=== PATIENT | female | born 1985 | race Caucasian/White ===

== ENCOUNTER 2017-12-28 16:56 | Emergency (ER) | payer SELFPAY ==
[2017-12-28 17:03] VITALS: BP 123/72; PULSE 65; TEMP 98.2; BMI 28.0
[2017-12-28] MEDS ORDERED: IBUPROFEN 400 MG TABLET (FP) PO ONE ×2 (17:25→17:29)
--- NOTE | 2017-12-28 17:25 | PDOC ---
History of Present Illness - General Chief Complaint: Injury Stated Complaint: FOOT INJURY Time Seen by Provider: 12/28/17 17:12 History Source: Patient Exam Limitations: Clinical Condition - History of Present Illness Initial Comments: 12/28/17 17:20 Patient with no sig Past medical history present with complain of pain and swelling to left foot on the lateral side status post injury while playing soccer 2 hours ago. Patient reported moderate swelling and pain to the side of the foot worsen with ambulation. Denies any other symptoms Timing/Duration: 1-3 hours Past History - Past Medical History Allergies/Adverse Reactions: Allergies Allergy/AdvReac Type Severity Reaction Status Date / Time No Known Allergies Allergy Verified 12/28/17 17:00 Home Medications: Ambulatory Orders Ibuprofen 800 mg PO Q8H PRN #20 tablet 12/28/17 COPD: No - Surgical History Appendectomy: Yes - Suicide/Smoking/Psychosocial Hx Smoking History: Never smoked Information on smoking cessation initiated: No Hx Alcohol Use: No Drug/Substance Use Hx: No Substance Use Type: None Review of Systems - Review of Systems Able to Perform ROS?: Yes Is the patient limited Armenian proficient: No Constitutional: No: Chills, Diaphoresis, Fever, Loss of Appetite, Malaise, Night Sweats, Weakness, Weight Stable, Unintentional Wgt. Loss, Unexplained wgt Loss, Other HEENTM: No: Eye Pain, Blurred Vision, Tearing, Recent change in vision, Double Vision, Cataracts, Ear Pain, Ocular Prothesis, Ear Discharge, Nose Pain, Nose Congestion, Tinnitus, Nose Bleeding, Hearing Loss, Throat Pain, Throat Swelling , Mouth Pain, Dental Problems, Difficulty Swallowing, Mouth Swelling, Other Respiratory: No: Cough, Orthopnea, Shortness of Breath, SOB with Exertion, SOB at Rest, Stridor, Wheezing, Productive cough, Hemoptysis, Other Cardiac (ROS): No: Chest Pain, Edema, Irregular Heart Rate, Lightheadedness, Palpitations, Syncope, Chest Tightness, Other ABD/GI: No: Abdominal Distended, Abd. Pain w/ defecation, Blood Streaked Bowels , Constipated, Diarrhea, Difficulty Swallowing, Nausea, Poor Appetite, Poor Fluid Intake, Rectal Bleeding, Vomiting, Indigestion, Abdominal cramping, Tarry Stools, Other Musculoskeletal: Yes: See HPI, Joint Swelling (left foot), Muscle Pain (left foot lateral side) Integumentary: Yes: Other (swelling to lateral side of left foot) All Other Systems: Reviewed and Negative *Physical Exam - Vital Signs Last Vital Signs Temp Pulse Resp BP Pulse Ox 98.2 F 65 18 123/72 100 12/28/17 17:00 12/28/17 17:00 12/28/17 17:00 12/28/17 17:00 12/28/17 17:00 - Physical Exam Comments: 12/28/17 17:22 GENERAL: Well developed, well nourished. Awake and alert. No acute distress. HEENT: Normocephalic, atraumatic. PERRLA, EOMI. No conjunctival pallor. Sclera are non- icteric. Moist mucous membranes. Oropharynx is clear. NECK: Supple. Full ROM. No JVD. Carotid pulses 2+ and symmetric, without bruits. No thyromegaly. No lymphadenopathy. CARDIOVASCULAR: Regular rate and rhythm. No murmurs, rubs, or gallops. Distal pulses are 2+ and symmetric. PULMONARY: No evidence of respiratory distress. Lungs clear to auscultation bilaterally. No wheezing, rales or rhonchi. ABDOMINAL: Soft. Non-tender. Non-distended. No rebound or guarding. No organomegaly. Normoactive bowel sounds. MUSCULOSKELETAL : Moderate swelling to lateral side of left foot and dorsum of right foot. Moderate tenderness to lateral side of left foot and dorsum of left foot over third to fifth metatarsals. No tenderness to ankle. Normal range of motion at all joints. No visible bony deformities EXTREMITIES: No cyanosis. No clubbing. No calf tenderness. SKIN: Warm and dry. Normal capillary refill. No rashes. No jaundice. NEUROLOGICAL: Alert, awake, appropriate. Cranial nerves 2-12 intact. No deficits to light touch and temperature in face, upper extremities and lower extremities. No motor deficits in the in face, upper extremities and lower extremities. Normoreflexic in the upper and lower extremities. Normal speech. Toes are down- going bilaterally. Gait is normal without ataxia. PSYCHIATRIC: Cooperative. Good eye contact. Appropriate mood and affect. General Appearance: Yes: Nourished, Appropriately Dressed, Mild Distress ED Treatment Course - RADIOLOGY Radiology Studies Ordered: Category Date Time Status ANKLE & FOOT-LEFT* [RAD] Stat Radiology 12/28/17 17:15 Ordered Medical Decision Making - Medical Decision Making 12/28/17 17:24 Patient with no sig Past medical history presenting with complain of pain and swelling to lateral side of left foot status post sports injury while playing soccer 2 hours ago. Exam shows moderate swelling and tenderness to dorsum when lateral side of left foot. X-ray of left ankle and foot ordered to rule out acute fracture pathology. Motrin 800 mg by mouth for pain. 12/28/17 18:53 Official radiology reading of x-ray of left foot and ankle shows no acute fracture. Patient will be treated for for sprain with NSAIDs and Javed wrap with orthopedist follow-up. Patient advised to keep weight off foot for the next few days and provided crutches to help relieve weight off the foot *DC/Admit/Observation/Transfer Diagnosis at time of Disposition: Foot pain, left Sprain of foot, left Qualifiers: Encounter type: initial encounter Qualified Code(s): S93.602A - Unspecified sprain of left foot, initial encounter - Discharge Dispostion Disposition: HOME Condition at time of disposition: Stable Decision to Admit order: No - Prescriptions Prescriptions: Ibuprofen 800 mg PO Q8H PRN #20 tablet PRN Reason: foot pain - Referrals Referrals: Tomy Landaverde MD [Staff Physician] - - Patient Instructions Printed Discharge Instructions: DI for Foot Fracture, DI for Foot Pain Additional Instructions: take prescribed medication as needed for pain. Keep left foot elevated and apply ice to foot. change to heat compress to foot after tomorrow. follow-up with referred orthopedics - Post Discharge Activity
== END 2017-12-28 18:59 | disposition home or self-care (01) ==
LOC: JERFT 16:56
DX: S93.602A Unspecified sprain of left foot, initial encounter (principal); X50.0XXA Overexertion from strenuous movement or load, initial encounter; Y93.66 Activity, soccer; Y92.322 Soccer field as the place of occurrence of the external cause; Y99.8 Other external cause status
CPT/HCPCS: 73610-TC-LT-FY; 73630-TC-LT; 99282-25

== ENCOUNTER 2019-01-03 21:37 | Emergency (ER) | payer SELFPAY | END 2019-01-04 02:22 | disposition home or self-care (01) | LOC: JER 01-04 02:22 | PROC: 3E0337Z Introduction of Electrolytic and Water Balance Substance into Peripheral Vein, Percutaneous Approach (ICD-10-PCS; principal; 2019-01-03) | DX: R07.89 Other chest pain (principal) ==

== ENCOUNTER 2019-05-18 11:32 | Emergency (ER) | payer OTHER ==
[2019-05-18 12:04] VITALS: BP 126/70; PULSE 61; TEMP 98.2; BMI 23.7
--- NOTE | 2019-05-18 13:24 | PDOC ---
History of Present Illness - General Chief Complaint: Cold Symptoms Stated Complaint: FEVER Time Seen by Provider: 05/18/19 12:55 - History of Present Illness Initial Comments: CHIEF COMPLAINT: cough, fever, body aches HISTORY OF PRESENT ILLNESS: 33 yo F with no PMH presents to ED with cough, body aches, and chills since yesterday morning. Patient states she has taken Tylenol with relief. Patient reports chest pain when coughing but otherwise no chest pain. No recent travel or sick contacts. PAST MEDICAL HISTORY: Denies past medical history FAMILY HISTORY: Denies SOCIAL HISTORY: Denies tobacco, alcohol, illicit drug use. SURGICAL HISTORY: Denies ALLERGIES: No known drug allergies REVIEW OF SYSTEMS General/Constitutional: Subjective fever, chills . Denies weakness, weight change. HEENT: Denies change in vision. Denies ear pain or discharge. Denies sore throat. Cardiovascular: Denies chest pain or shortness of breath. Respiratory: Cough. Denies wheezing, or hemoptysis. Gastrointestinal: Denies nausea, vomiting, diarrhea or constipation. Denies rectal bleeding. Genitourinary: Denies dysuria, frequency, or change in urination. Musculoskeletal: Generalized body aches. Denies joint or muscle swelling or pain. Denies neck or back pain. Skin and breasts: Denies rash or easy bruising. Neurologic: Denies headache, vertigo, loss of consciousness, or loss of sensation. Psychiatric: Denies depression or anxiety. PHYSICAL EXAM General Appearance: Well-appearing, appropriately dressed. No apparent distress. HEENT: EOMI, PERRLA, normal ENT inspection, normal voice, TMs normal, pharynx normal. No conjunctival pallor. No photophobia, scleral icterus. Neck: Supple. Trachea midline. No tenderness, rigidity, carotid bruit, stridor , lymphadenopathy, or thyromegaly. Respiratory/Chest: Intermittent expiratory wheezing to ACE. No shortness of breath, chest tenderness, respiratory distress, accessory muscle use. No crackles, rales, rhonchi, stridor, dullness Cardiovascular: RRR. S1, S2. No JVD, murmur, bradycardia, tachycardia. Vascular Pulses: Dorsalis-Pedis (R): 2+, Dorsalis-Pedis (L): 2+ Gastrointestinal/Abdominal: Normal bowel sounds. Abdomen soft, non-distended. No tenderness or rebound tenderness. No organomegaly, pulsatile mass, guarding , hernia, hepatomegaly, splenomegaly. Lymphatic: No adenopathy, tenderness. Musculoskeletal/Extremities: Normal inspection. FROM of all extremities, normal capillary refill. Pelvis Stable. No CVA tenderness. No tenderness to extremities, pedal edema, swelling, erythema or deformity. Integumentary: Appropriate color, dry, warm. No cyanosis, erythema, jaundice or rash Neurologic: erp pm II-XII intact. Fully oriented, alert. Appropriate mood/affect. Motor strength 5/5. No appreciable EOM palsy, facial droop or sensory deficit. 05/18/19 13:25 Past History - Past Medical History Allergies/Adverse Reactions: Allergies Allergy/AdvReac Type Severity Reaction Status Date / Time No Known Allergies Allergy Verified 05/18/19 12:04 Home Medications: Ambulatory Orders Ibuprofen 800 mg PO Q8H PRN #20 tablet 12/28/17 Benzonatate [Tessalon Perle -] 200 mg PO TID #42 cap 05/18/19 Pseudoephedrine HCl [Pseudoephedrine ER] 120 mg PO BID #20 tablet.er 05/18/19 COPD: No - Surgical History Appendectomy: Yes - Psycho Social/Smoking Cessation Hx Smoking History: Never smoked Hx Alcohol Use: No Drug/Substance Use Hx: No Substance Use Type: None *Physical Exam - Vital Signs Last Vital Signs Temp Pulse Resp BP Pulse Ox 98.2 F 61 16 126/70 100 05/18/19 12:00 05/18/19 12:00 05/18/19 12:00 05/18/19 12:00 05/18/19 12:00 Medical Decision Making - Medical Decision Making 05/18/19 13:23 33 yo F with no PMH presents to ED with cough, body aches, and chills since yesterday morning. -XR -duoneb XR negative. Likely viral URI. Will treat symptomatically. Discharge - Discharge Information Problems reviewed: Yes Clinical Impression/Diagnosis: Viral upper respiratory infection Condition: Stable Disposition: HOME - Admission No - Additional Discharge Information Prescriptions: Benzonatate [Tessalon Perle -] 200 mg PO TID #42 cap Pseudoephedrine HCl [Pseudoephedrine ER] 120 mg PO BID #20 tablet.er - Follow up/Referral Referrals: Jhonatan Yadav MD [Staff Physician] - - Patient Discharge Instructions Patient Printed Discharge Instructions: DI for Viral Upper Respiratory Infection -- Adult - Post Discharge Activity Work/Back to School Note: Back to Work
[2019-05-18] MEDS ORDERED: ALBUTEROL SO4 2.5/IPRATROPIUM 0.5 INH SOL 3 ML VIAL.NEB. NEB ONE ×2 (13:25→14:01)
== END 2019-05-18 15:53 | disposition home or self-care (01) ==
LOC: JERFT 11:32 → JER 11:32
PROC: 3E0F7GC Introduction of Other Therapeutic Substance into Respiratory Tract, Via Natural or Artificial Opening (ICD-10-PCS; principal; 2019-05-18)
DX: J06.9 Acute upper respiratory infection, unspecified (principal)
CPT/HCPCS: 71046-TC-FY; 94640; 99281-25